=== PATIENT | female | born 1955 | race Caucasian/White ===

== ENCOUNTER → 2017-04-15 | Outpatient (CLI) | payer MEDICARE, MEDICAID ==
[~2017-04-15] MED LIST: AMIT25TA9 PO; ATOR20TA65; CLOB15OI3; FLUT16SP15; IMIT50; LOSA100T14; OMEP20CA10 PO; ROSU10TA PO; [UNRECOGNIZED DRUG - CODE] PO
== END | disposition home or self-care (01) ==
LOC: MAMMO 09:33
PROVIDERS: ATTEND Specialist
DX: Z12.31 Encounter for screening mammogram for malignant neoplasm of breast (principal)
CPT/HCPCS: 77067

== ENCOUNTER 2019-01-12 14:13 | Inpatient (IN) | payer MEDICARE, MEDICAID ==
[~2019-01-12] VITALS: Ht 152.4 cm; Wt 75.3 kg
[~2019-01-12 14:13] MED LIST changes: +CETI-106 PO; +CRES10 PO; -LOSA100T14; +LOSA100T32; -OMEP20CA10 PO; +OMEP20CA5 PO; -ROSU10TA PO; -[UNRECOGNIZED DRUG - CODE] PO
[2019-01-12] MEDS ORDERED: ALBUTEROL (0.083%) 2.5MG/3ML NEB HHN ONE (15:00)
[2019-01-12 15:12] LABS: BASOPHILS % 0.9 % (0.0-2.0); EOSINOPHILS % 1.3 % (0.0-5.0); HEMATOCRIT. 40.3 % (36.0-48.0); HEMOGLOBIN. 13.7 g/dL (12.0-16.0); LYMPHOCYTES % 25.7 % (20.0-50.0); MEAN PLATELET VOLUME 7.6 fl (7.4-10.4); MONOCYTES % 5.1 % (2.0-8.0); PLATELET 252 x1000/uL (130-400); RED BLOOD CELL COUNT 4.43 mill/uL (4.2-5.4); RED CELL DISTRIBUTION WIDTH 14.7 % (11.6-14.6)
[2019-01-12 15:17] LABS: CHLORIDE 106 mEq/L (98-107)
[2019-01-12] MEDS ORDERED: METHYLPREDNISOLONE SOD SUCC 125 MG/2 ML VIAL IV ONE (15:45)
[2019-01-12 22:05] VITALS: BP 172/101
[2019-01-13] VITALS: BP 137/55
[2019-01-13] MEDS: ZOLPIDEM TARTRATE 5MG TABLET PO PRN ×2 (00:26→20:58)
[2019-01-13] MEDS: ACETAMINOPHEN 325MG TABLET PO PRN ×3 (00:26→21:00)
[2019-01-13] MEDS: IPRATROPIUM/ALBUTEROL 0.5-3(2.5)MG/3ML NEB HHN SCH ×6 (00:52→20:34)
[2019-01-13] MEDS ORDERED: GABA-531 PO (02:01)
[2019-01-13] MEDS ORDERED: BENZ200C52 PO (02:01)
[2019-01-13 04:00] VITALS: BP 114/67
[2019-01-13] MEDS: OMEPRAZOLE 20MG CAPSULE EXTENDED RELEASE PO SCH (06:27)
[2019-01-13 07:20] LABS: BASOPHILS % 0.1 % (0.0-2.0); HEMATOCRIT. 39.1 % (36.0-48.0); HEMOGLOBIN. 13.2 g/dL (12.0-16.0); LYMPHOCYTES % 9.1 % (20.0-50.0); MEAN CORPUSCULAR HEMOGLOBIN 30.8 pg (28.0-32.0); MEAN CORPUSCULAR VOLUME 91.4 fL (81.0-99.0); MEAN PLATELET VOLUME 8.1 fl (7.4-10.4); MONOCYTES % 2.1 % (2.0-8.0); NEUTROPHILS % 88.7 % (40.0-76.0); PLATELET 233 x1000/uL (130-400); RED BLOOD CELL COUNT 4.28 mill/uL (4.2-5.4); RED CELL DISTRIBUTION WIDTH 14.5 % (11.6-14.6)
[2019-01-13 07:25] LABS: CHLORIDE 106 mEq/L (98-107)
[2019-01-13 07:58] VITALS: BP 136/63
[2019-01-13] MEDS: LOSARTAN POTASSIUM 100 MG TABLET PO SCH (08:26)
[2019-01-13] MEDS: ENOXAPARIN 40MG/0.4ML SYR SUBCUT SCH (09:59)
[2019-01-13 12:00] VITALS: BP 124/65
[2019-01-13] MEDS ORDERED: METHYLPREDNISOLONE SOD SUCC 40 MG/ML VIAL IV SCH (12:00)
[2019-01-13] MEDS: AZITHROMYCIN 500 MG TABLET PO SCH (12:11)
[2019-01-13] MEDS ORDERED: DIPHENHYDRAMINE 50MG/ML VIAL IV PRN (12:32)
[2019-01-13] MEDS ORDERED: IPRATROPIUM/ALBUTEROL 0.5-3(2.5)MG/3ML NEB HHN PRN (14:00)
[2019-01-13] MEDS ORDERED: AZITHROMYCIN 500 MG TABLET PO SCH (14:00)
[2019-01-13 15:20] LABS: BG BASE EXCESS -0.5 mmol/L (-2.0-2.0); BG CARBOXYHEMOGLOBIN 0.3 % (0.5-1.5); BG DEOXYHEMOGLOBIN 9.1 % (0.0-5.0); BG FRACTION INSPIRED OXYGEN 21; BG HCO3 ACT 23.5 mmol/L (22.0-26.0); BG METHEMOGLOBIN 0.1 % (0.0-1.5); BG OXYGEN SATURATION 90.9 % (92.0-98.5); BG OXYHEMOGLOBIN 90.5 % (94.0-97.0); BG PCO2 36.6 mmHg (35.0-45.0); BG PH 7.425 (7.350-7.450); BG PO2 60.5 mmHg (75.0-100.0); BG SAMPLE SITE RIGHT BRACHIAL; BG TOTAL HEMOGLOBIN 13.5 g/dL (12.0-18.0); BG VENT MODE ROOM AIR
[2019-01-13 16:00] VITALS: BP 121/61
[2019-01-13 20:00] VITALS: BP 128/60
[2019-01-13] MEDS: ATORVASTATIN CALCIUM 20MG TABLET PO SCH (20:58)
[2019-01-14] VITALS: BP 109/54
[2019-01-14] MEDS: IPRATROPIUM/ALBUTEROL 0.5-3(2.5)MG/3ML NEB HHN SCH ×6 (00:24→21:03)
[2019-01-14 04:00] VITALS: BP 127/65
[2019-01-14 06:08] LABS: CHLORIDE 107 mEq/L (98-107)
[2019-01-14] MEDS: OMEPRAZOLE 20MG CAPSULE EXTENDED RELEASE PO SCH (06:14)
[2019-01-14 06:42] LABS: BASOPHILS % 0.1 % (0.0-2.0); HEMOGLOBIN. 12.2 g/dL (12.0-16.0); LYMPHOCYTES % 11.5 % (20.0-50.0); MEAN CORPUSCULAR HEMOGLOBIN 31.1 pg (28.0-32.0); MEAN CORPUSCULAR VOLUME 91.5 fL (81.0-99.0); MEAN PLATELET VOLUME 7.9 fl (7.4-10.4); MONOCYTES % 5.7 % (2.0-8.0); NEUTROPHILS % 82.7 % (40.0-76.0); PLATELET 237 x1000/uL (130-400); RED BLOOD CELL COUNT 3.93 mill/uL (4.2-5.4); RED CELL DISTRIBUTION WIDTH 14.8 % (11.6-14.6)
[2019-01-14 08:00] VITALS: BP 151/81
[2019-01-14] MEDS: LOSARTAN POTASSIUM 100 MG TABLET PO SCH (09:05)
[2019-01-14] MEDS: AZITHROMYCIN 500 MG TABLET PO SCH (09:05)
[2019-01-14] MEDS: ENOXAPARIN 40MG/0.4ML SYR SUBCUT SCH (09:06)
[2019-01-14] MEDS: ACETAMINOPHEN 325MG TABLET PO PRN ×2 (10:21→20:31)
[2019-01-14 12:00] VITALS: BP 124/65
[2019-01-14 16:00] VITALS: BP 129/68
[2019-01-14 20:00] VITALS: BP 141/73
[2019-01-14] MEDS: ZOLPIDEM TARTRATE 5MG TABLET PO PRN (20:31)
[2019-01-14] MEDS: ATORVASTATIN CALCIUM 20MG TABLET PO SCH (20:31)
[2019-01-15] VITALS (8 sets, daily range): BP systolic 104–179; BP diastolic 61–107
[2019-01-15] MEDS: IPRATROPIUM/ALBUTEROL 0.5-3(2.5)MG/3ML NEB HHN SCH ×7 (01:04→23:56)
[2019-01-15] MEDS: OMEPRAZOLE 20MG CAPSULE EXTENDED RELEASE PO SCH (06:30)
[2019-01-15] MEDS: ENOXAPARIN 40MG/0.4ML SYR SUBCUT SCH (08:02)
[2019-01-15] MEDS: LOSARTAN POTASSIUM 100 MG TABLET PO SCH (08:02)
[2019-01-15] MEDS: AZITHROMYCIN 500 MG TABLET PO SCH (08:02)
[2019-01-15] MEDS: ACETYLCYSTEINE 100MG/ML 10% VIAL 4ML INH SCH ×2 (17:00→23:55)
[2019-01-15] MEDS: ACETAMINOPHEN 325MG TABLET PO PRN (19:33)
[2019-01-15] MEDS: ATORVASTATIN CALCIUM 20MG TABLET PO SCH (21:10)
[2019-01-15] MEDS: ZOLPIDEM TARTRATE 5MG TABLET PO PRN (23:34)
[2019-01-16] VITALS: BP 118/72
[2019-01-16] MEDS: IPRATROPIUM/ALBUTEROL 0.5-3(2.5)MG/3ML NEB HHN SCH ×4 (03:53→16:47)
[2019-01-16 04:00] VITALS: BP 134/66
[2019-01-16] MEDS: OMEPRAZOLE 20MG CAPSULE EXTENDED RELEASE PO SCH (06:12)
[2019-01-16] MEDS: ACETYLCYSTEINE 100MG/ML 10% VIAL 4ML INH SCH ×2 (08:21→16:47)
[2019-01-16] MEDS: AZITHROMYCIN 500 MG TABLET PO SCH (08:26)
[2019-01-16] MEDS: LOSARTAN POTASSIUM 100 MG TABLET PO SCH (08:26)
[2019-01-16] MEDS: ENOXAPARIN 40MG/0.4ML SYR SUBCUT SCH (08:27)
[2019-01-16 12:00] VITALS: BP 134/84
[2019-01-16] MEDS: ACETAMINOPHEN 325MG TABLET PO PRN (15:20)
[2019-01-16 16:00] VITALS: BP 127/65
[2019-01-16] MEDS ORDERED: ALBU18HF2 IH (16:08)
[2019-01-16] MEDS ORDERED: BENZ-16 MT (16:08)
[2019-01-16] MEDS ORDERED: GUAI600T26 MT (16:08)
[2019-01-16 18:02] VITALS: BP 127/67
== END 2019-01-16 19:05 | disposition home or self-care (01) | DRG 193 ==
LOC: ER 14:13 → 8WST 14:51 → EDBEDREQ 16:26 → EDBEDREQSVC 16:26 → ENRESERV 20:55
PROVIDERS: ADMIT Specialist; ATTEND Specialist
DX: J18.9 Pneumonia, unspecified organism (principal); J96.00 Acute respiratory failure, unspecified whether with hypoxia or hypercapnia; J44.1 Chronic obstructive pulmonary disease with (acute) exacerbation; J44.0 Chronic obstructive pulmonary disease with (acute) lower respiratory infection; J20.9 Acute bronchitis, unspecified; I10 Essential (primary) hypertension; Y95 Nosocomial condition; E78.00 Pure hypercholesterolemia, unspecified; K21.9 Gastro-esophageal reflux disease without esophagitis; I11.9 Hypertensive heart disease without heart failure; I25.10 Atherosclerotic heart disease of native coronary artery without angina pectoris; G43.909 Migraine, unspecified, not intractable, without status migrainosus; R62.7 Adult failure to thrive; E78.5 Hyperlipidemia, unspecified; Z88.6 Allergy status to analgesic agent; Z88.5 Allergy status to narcotic agent; Z88.1 Allergy status to other antibiotic agents; Z91.041 Radiographic dye allergy status; Z91.013 Allergy to seafood
CPT/HCPCS: 36415; 36600; 71045; 80048; 82375; 82805; 83880; 84484; 93005; 93306; 93970; 94640; 97162; 97166; 99285; C1893; J1200; J1650; J2920; J2930; J7608; J7611; J7620